=== PATIENT | female | born 1955 | race Hispanic/Latino ===

== ENCOUNTER 2018-08-09 12:48 | Outpatient (CLI) | payer OTHER ==
--- NOTE | 2018-08-09 14:38 | Mammography Report ---
LEFT DIGITAL DIAGNOSTIC MAMMOGRAM: 08/09/18 12:48:00 CLINICAL: For clip placement immediately status post ultrasound biopsy at 2 sites. COMPARISON: [facility] 07/26/18 FINDINGS: Biopsy clips are now identified at 2 o'clock and 5 o'clock. IMPRESSION: Concordant clip placement status post ultrasound biopsy at 2 sites. BI-RADS CATEGORY: 4--Suspicious Pathology pending.
--- NOTE | 2018-08-09 14:49 | Ultrasound Report ---
ULTRASOUND GUIDED NEEDLE CORE BIOPSY WITH CLIP PLACEMENT AT 2 SITES LEFT BREAST : 08/09/18 13:00:00 CLINICAL: Left breast masses at 2 o'clock 2 cm from the nipple and at 5 o'clock 2 cm from the nipple. COMPARISON :[facility] FINDINGS: The procedure was explained to the patient and informed consent was obtained . Ultrasound demonstrated the 2 lesions described on a recent ultrasound. The skin was prepped with Betadine and anesthetized with 1% lidocaine. Ultrasound needle core biopsy was performed at 2 o'clock 2 cm from the nipple through a small dermatotomy using ultrasound guidance, 2% lidocaine with epinephrine for deep anesthesia and a 14-gauge coaxial Bard biopsy device. Imaging demonstrated satisfactory sampling. 4 cores were obtained and placed in formalin. A localizer clip was then placed within the lesion. The skin was prepped with Betadine and anesthetized with 1% lidocaine. Ultrasound needle core biopsy was performed at 5 o'clock 2 cm from the nipple through a small dermatotomy using ultrasound guidance, 2% lidocaine with epinephrine for deep anesthesia and a 14-gauge coaxial Bard biopsy device. 3 cores were obtained and placed in formalin. A localizer clip was deployed within the lesion. Hemostasis was obtained both sites with minimal pressure and sterile dressings were applied. The patient tolerated the procedure well and there were no apparent complications. A two-view mammogram demonstrated concordant clip placement at 2 sites. She was discharged in good condition and was given instructions for wound care and followup. IMPRESSION: Uncomplicated ultrasound-guided needle core biopsy of left breast masses .
== END 2018-08-09 12:49 | disposition home or self-care (01) ==
LOC: SPVWC 12:48
PROVIDERS: ATTEND Obstetrics & Gynecology
DX: D24.2 Benign neoplasm of left breast (principal); I10 Essential (primary) hypertension
CPT/HCPCS: 19083; 19084; 77065; 88305; A4648